=== PATIENT | female | born 1995 | race Asian ===

== ENCOUNTER → 2020-04-28 | Outpatient (CLI) | payer OTHER | LOC: M LABSMTC 14:06 | PROVIDERS: ATTEND Family Medicine | DX: Z20.828 Contact with and (suspected) exposure to other viral communicable diseases (principal) ==

== ENCOUNTER 2022-09-02 16:03 | Emergency (ER) | payer OTHER ==
[~2022-09-02] VITALS: Ht 165.1 cm; Wt 61.4 kg
[2022-09-02] MEDS ORDERED: ALBU6.7H6 INH (16:18)
[2022-09-02] MEDS ORDERED: ALLE180T33 PO (16:18)
[2022-09-02 17:16] LABS: BASO # 0.1 10^3/uL (0.0-0.2); BASO % 0.9 % (0.0-1.0); EOS # 1.6 10^3/uL (0.0-0.5); EOS % 14.4 % (0.0-3.0); HEMATOCRIT 43.2 % (36.0-47.0); HEMOGLOBIN 13.7 g/dl (12.0-15.5); LYMPH # 2.3 10^3/uL (1.5-5.0); LYMPH % 20.2 % (24.0-44.0); MEAN CORPUSCULAR HEMOGLOBIN 27.8 pg (27.0-33.0); MEAN CORPUSCULAR HGB CONC 31.7 g/dl (32.0-36.5); MEAN CORPUSCULAR VOLUME 87.6 fl (80.0-96.0); MONO # 0.6 10^3/uL (0.0-0.8); MONO % 5.6 % (2.0-8.0); NEUTROPHILS # 6.6 10^3/uL (1.5-8.5); NEUTROPHILS % 58.7 % (36.0-66.0); PLATELET COUNT, AUTOMATED 309 10^3/uL (150-450); RED BLOOD COUNT 4.93 10^6/uL (4.00-5.40); WHITE BLOOD COUNT 11.2 10^3/uL (4.0-10.0)
[2022-09-02 17:30] LABS: HCG, SERUM QUANTITATIVE 630.7 MIU/ML (<4.2)
[2022-09-02 17:31] LABS: BLOOD UREA NITROGEN 11 MG/DL (9-23); CALCIUM LEVEL 9.5 MG/DL (8.5-10.1); CARBON DIOXIDE LEVEL 25 MMOL/L (20-31); CHLORIDE LEVEL 105 MMOL/L (98-107); CREATININE FOR GFR 0.62 MG/DL (0.55-1.30); GLOMERULAR FILTRATION RATE > 60.0 (>60); GLUCOSE, FASTING 98 MG/DL (60-100); SODIUM LEVEL 138 MMOL/L (136-145)
[2022-09-02 17:42] LABS: APPEARANCE, URINE CLEAR (CLEAR); BACTERIA, URINE AUTO 1+ (NEGATIVE); BILIRUBIN, URINE AUTO NEGATIVE (NEGATIVE); BLOOD, URINE BLOOD 3+ (NEGATIVE); COLOR, URINE YELLOW (YELLOW); GLUCOSE, URINE (UA) AUTO NEGATIVE (NEGATIVE); KETONE, URINE AUTO NEGATIVE (NEGATIVE); LEUKOCYTE ESTERASE, URINE AUTO NEGATIVE (NEGATIVE); NITRITE, URINE AUTO NEGATIVE (NEGATIVE); PROTEIN, URINE AUTO 1+ mg/dL (NEGATIVE); RBC, URINE AUTO 23 /HPF (0-3); SPECIFIC GRAVITY URINE AUTO 1.002 (1.002-1.035); SQUAMOUS EPITHELIAL CELL UR AU 0 /HPF (0-6); UROBILINOGEN, URINE AUTO 0.2 mg/dL (0.0-2.0); WBC, URINE AUTO 1 /HPF (0-3)
[2022-09-02 18:40] VITALS: BP 117/64
== END 2022-09-02 18:46 | disposition home or self-care (01) ==
LOC: M ED 16:03
DX: O20.9 Hemorrhage in early pregnancy, unspecified (principal); Z3A.00 Weeks of gestation of pregnancy not specified; O99.511 Diseases of the respiratory system complicating pregnancy, first trimester

== ENCOUNTER 2022-09-05 08:53 | Emergency (ER) | payer OTHER ==
[~2022-09-05] VITALS: Ht 165.1 cm; Wt 64.3 kg
[~2022-09-05 08:53] MED LIST: ALBU6.7H6 INH; ALLE180T33 PO
[2022-09-05] MEDS ORDERED: PRENMIS3 PO (09:04)
[2022-09-05 13:01] VITALS: BP 106/76
== END 2022-09-05 13:02 | disposition home or self-care (01) ==
LOC: M ED 08:53
DX: O20.0 Threatened abortion (principal); Z3A.01 Less than 8 weeks gestation of pregnancy; O99.511 Diseases of the respiratory system complicating pregnancy, first trimester

== ENCOUNTER 2022-09-05 23:32 | Emergency (ER) | payer OTHER ==
[~2022-09-05] VITALS: Ht 165.1 cm; Wt 64.0 kg
[~2022-09-05 23:32] MED LIST changes: +PRENMIS3 PO
[2022-09-05 23:33] VITALS: BP 110/68
== END 2022-09-06 03:29 | disposition left against medical advice (07) ==
LOC: M ED 23:32
DX: Z53.21 Procedure and treatment not carried out due to patient leaving prior to being seen by health care provider (principal)

== ENCOUNTER → 2022-09-07 | Outpatient (CLI) | payer OTHER | LOC: M PLALAB 10:25 | PROVIDERS: ATTEND Obstetrics & Gynecology | DX: Z34.90 Encounter for supervision of normal pregnancy, unspecified, unspecified trimester (principal) ==

== ENCOUNTER → 2022-09-09 | Outpatient (CLI) | payer OTHER ==
[~2022-09-09] MED LIST changes: +DOCU-153 PO; +FERR324T21 PO
== END ==
LOC: M PLALAB 11:10
PROVIDERS: ATTEND Obstetrics & Gynecology
DX: Z34.90 Encounter for supervision of normal pregnancy, unspecified, unspecified trimester (principal)

== ENCOUNTER 2022-09-10 21:30 | Emergency (ER) | payer OTHER ==
[~2022-09-10] VITALS: Ht 165.1 cm; Wt 63.6 kg
[~2022-09-10 21:30] MED LIST changes: -DOCU-153 PO; -FERR324T21 PO
[2022-09-10 22:43] LABS: BASO # 0.1 10^3/uL (0.0-0.2); BASO % 0.9 % (0.0-1.0); EOS # 1.8 10^3/uL (0.0-0.5); EOS % 14.1 % (0.0-3.0); HEMATOCRIT 37.6 % (36.0-47.0); HEMOGLOBIN 12.4 g/dl (12.0-15.5); LYMPH # 2.9 10^3/uL (1.5-5.0); LYMPH % 22.2 % (24.0-44.0); MEAN CORPUSCULAR HEMOGLOBIN 28.9 pg (27.0-33.0); MEAN CORPUSCULAR VOLUME 87.6 fl (80.0-96.0); MONO # 0.8 10^3/uL (0.0-0.8); MONO % 6.2 % (2.0-8.0); NEUTROPHILS # 7.3 10^3/uL (1.5-8.5); NEUTROPHILS % 56.4 % (36.0-66.0); PLATELET COUNT, AUTOMATED 305 10^3/uL (150-450); RED BLOOD COUNT 4.29 10^6/uL (4.00-5.40); WHITE BLOOD COUNT 12.9 10^3/uL (4.0-10.0)
[2022-09-10 22:50] LABS: APPEARANCE, URINE CLEAR (CLEAR); BACTERIA, URINE AUTO 1+ (NEGATIVE); BILIRUBIN, URINE AUTO NEGATIVE (NEGATIVE); BLOOD, URINE BLOOD 3+ (NEGATIVE); COLOR, URINE YELLOW (YELLOW); GLUCOSE, URINE (UA) AUTO NEGATIVE (NEGATIVE); KETONE, URINE AUTO NEGATIVE (NEGATIVE); LEUKOCYTE ESTERASE, URINE AUTO NEGATIVE (NEGATIVE); MUCUS, URINE SMALL (NEGATIVE); NITRITE, URINE AUTO NEGATIVE (NEGATIVE); PROTEIN, URINE AUTO NEGATIVE (NEGATIVE); RBC, URINE AUTO TNTC /HPF (0-3); SPECIFIC GRAVITY URINE AUTO 1.013 (1.002-1.035); SQUAMOUS EPITHELIAL CELL UR AU 2 /HPF (0-6); UROBILINOGEN, URINE AUTO 0.2 mg/dL (0.0-2.0); WBC, URINE AUTO 0 /HPF (0-3)
[2022-09-10] MEDS ORDERED: NS 1,000 ML IV ONE (22:50)
[2022-09-10 23:23] LABS: HCG, SERUM QUANTITATIVE 1410.8 MIU/ML (<4.2)
[2022-09-11 02:06] LABS: ALBUMIN 4.1 G/DL (3.2-5.2); BILIRUBIN,DIRECT 0.2 MG/DL (<0.4); BILIRUBIN,TOTAL 0.8 MG/DL (0.3-1.2); TOTAL PROTEIN 7.7 G/DL (5.7-8.2)
[2022-09-11] MEDS ORDERED: METHOTREXATE 2.5MG TAB PO STA (02:07)
[2022-09-11] MEDS ORDERED: METHOTREXATE 50MG/2ML VIAL IM STA (02:31)
[2022-09-11 04:59] VITALS: BP 104/66
[2022-09-12] MEDS ORDERED: FERR324T21 PO (14:32)
[2022-09-12] MEDS ORDERED: DOCU-153 PO (14:32)
== END 2022-09-11 05:00 | disposition home or self-care (01) ==
LOC: M ED 21:30
DX: O03.4 Incomplete spontaneous abortion without complication (principal); Z3A.01 Less than 8 weeks gestation of pregnancy; Z91.010 Allergy to peanuts; Z79.899 Other long term (current) drug therapy
CPT/HCPCS: 76801; 76817; 80047; 80076; 81001; 84702; 85025; 86850; 86900; 86901; 87086; 93976; 96372; 99284; J9260

== ENCOUNTER 2022-09-11 16:20 | Observation (INO) | payer OTHER ==
[~2022-09-11] VITALS: Ht 165.1 cm; Wt 61.2 kg
[2022-09-11] MEDS ORDERED: NS 1,000 ML IV ONE (16:45)
[2022-09-11 17:24] LABS: BASO # 0.1 10^3/uL (0.0-0.2); BASO % 0.5 % (0.0-1.0); EOS # 1.3 10^3/uL (0.0-0.5); EOS % 9.2 % (0.0-3.0); HEMATOCRIT 30.1 % (36.0-47.0); LYMPH % 14.4 % (24.0-44.0); MEAN CORPUSCULAR HEMOGLOBIN 29.3 pg (27.0-33.0); MEAN CORPUSCULAR HGB CONC 33.2 g/dl (32.0-36.5); MEAN CORPUSCULAR VOLUME 88.3 fl (80.0-96.0); MONO # 0.7 10^3/uL (0.0-0.8); MONO % 4.8 % (2.0-8.0); NEUTROPHILS # 9.8 10^3/uL (1.5-8.5); NEUTROPHILS % 70.7 % (36.0-66.0); PLATELET COUNT, AUTOMATED 258 10^3/uL (150-450); RED BLOOD COUNT 3.41 10^6/uL (4.00-5.40); WHITE BLOOD COUNT 13.9 10^3/uL (4.0-10.0)
[2022-09-11 17:28] LABS: PARTIAL THROMBOPLASTIN TIME 25.2 SECONDS (24.8-34.2)
[2022-09-11 17:32] LABS: BLOOD UREA NITROGEN 9 MG/DL (9-23); CALCIUM LEVEL 8.2 MG/DL (8.5-10.1); CARBON DIOXIDE LEVEL 25 MMOL/L (20-31); CHLORIDE LEVEL 107 MMOL/L (98-107); CREATININE FOR GFR 0.67 MG/DL (0.55-1.30); GLOMERULAR FILTRATION RATE > 60.0 (>60); GLUCOSE, FASTING 101 MG/DL (60-100); HCG, SERUM QUANTITATIVE 517.7 MIU/ML (<4.2); POTASSIUM SERUM 3.8 MMOL/L (3.5-5.1); SODIUM LEVEL 138 MMOL/L (136-145)
[2022-09-11 17:34] LABS: FREE T4 1.09 NG/DL (0.89-1.76)
[2022-09-11 17:35] LABS: THYROID STIMULATING HORMONE 1.827 uIU/ML (0.55-4.78)
[2022-09-11 17:50] LABS: INR 1.04; PROTHROMBIN TIME 13.8 SECONDS (12.5-14.5)
[2022-09-11] MEDS ORDERED: MORPHINE 2 MG/ML 1ML VIAL IV ONE (19:00)
[2022-09-11] MEDS ORDERED: MORPHINE 4 MG/ML 1ML VIAL IV ONE (19:50)
[2022-09-11] MEDS ORDERED: ONDANSETRON 4MG 2ML VIAL IV ONE (19:55)
[2022-09-11] MEDS ORDERED: NS 1,000 ML IV SCH (19:55)
[2022-09-11] MEDS ORDERED: HOME MED LIST COMPLETE! XX SCH (20:00)
[2022-09-11 20:37] LABS: RSV AMPLIFICATION NEGATIVE (NEGATIVE)
[2022-09-11] MEDS ORDERED: PERCOCET 5MG/325MG TAB PO PRN ×2 (20:55)
[2022-09-11] MEDS ORDERED: LR 1,000 ML IV SCH (20:55)
[2022-09-11] MEDS ORDERED: ONDANSETRON 4MG 2ML VIAL IV PRN (20:55)
[2022-09-11 21:55] VITALS: BP 101/57
[2022-09-11 22:25] VITALS: BP 121/58
[2022-09-11 23:12] LABS: HEMATOCRIT 30.1 % (36.0-47.0); HEMOGLOBIN 9.7 g/dl (12.0-15.5); MEAN CORPUSCULAR HEMOGLOBIN 28.9 pg (27.0-33.0); MEAN CORPUSCULAR HGB CONC 32.2 g/dl (32.0-36.5); MEAN CORPUSCULAR VOLUME 89.6 fl (80.0-96.0); PLATELET COUNT, AUTOMATED 255 10^3/uL (150-450); RED BLOOD COUNT 3.36 10^6/uL (4.00-5.40); WHITE BLOOD COUNT 22.1 10^3/uL (4.0-10.0)
[2022-09-11 23:25] VITALS: BP 105/50
[2022-09-12] MEDS: ACETAMINOPHEN 500 MG TAB PO PRN ×2 (00:23→11:50)
[2022-09-12 00:55] VITALS: BP 105/54
[2022-09-12 05:00] VITALS: BP 94/60
[2022-09-12 07:21] LABS: HEMATOCRIT 24.1 % (36.0-47.0); HEMOGLOBIN 7.8 g/dl (12.0-15.5); MEAN CORPUSCULAR HEMOGLOBIN 28.9 pg (27.0-33.0); MEAN CORPUSCULAR HGB CONC 32.4 g/dl (32.0-36.5); MEAN CORPUSCULAR VOLUME 89.3 fl (80.0-96.0); PLATELET COUNT, AUTOMATED 225 10^3/uL (150-450); WHITE BLOOD COUNT 15.1 10^3/uL (4.0-10.0)
[2022-09-12 08:45] VITALS: BP 99/55
[2022-09-12 10:00] VITALS: BP 100/54
[2022-09-12 14:00] VITALS: BP 107/60
[2022-09-12] MEDS ORDERED: FERR324T21 PO (14:32)
[2022-09-12] MEDS ORDERED: DOCU-153 PO (14:32)
== END 2022-09-12 15:23 | disposition home or self-care (01) ==
LOC: M ED 16:20 → EDBD 16:20 → M OBS 20:51
PROVIDERS: ADMIT Obstetrics & Gynecology; ATTEND Obstetrics & Gynecology
DX: O03.9 Complete or unspecified spontaneous abortion without complication (principal); R55 Syncope and collapse; Z91.010 Allergy to peanuts; Z91.018 Allergy to other foods
CPT/HCPCS: 36415; 76801; 76817; 80048; 81001; 84439; 84443; 84702; 85025; 85027; 85610; 85730; 86850; 86900; 86901; 87086; 87631; 93005; 93041; 93976; 94760; 96361; 96374; 96375; 99285; J2405

== ENCOUNTER → 2022-09-16 | Outpatient (CLI) | payer OTHER ==
[~2022-09-16] MED LIST changes: +DOCU-153 PO; +FERR324T21 PO
== END ==
LOC: M PLALAB 10:55
PROVIDERS: ATTEND Advanced Practice Midwife
DX: O03.9 Complete or unspecified spontaneous abortion without complication (principal)